=== PATIENT | male | born 1945 | race Native Hawaiian/Other Pacific Islander ===

== ENCOUNTER 2020-06-25 11:21 | Outpatient (CLI) | payer OTHER ==
[2020-06-25 12:15] LABS: PLATELET COUNT 158 K/uL (142-355)
[2020-06-25 12:51] LABS: POTASSIUM 4.7 mmol/L (3.6-5.2)
== END 2020-06-25 23:45 | disposition home or self-care (01) ==
LOC: LAB 11:21
PROVIDERS: ATTEND Nurse Practitioner Family
DX: Z00.00 Encounter for general adult medical examination without abnormal findings (principal); Z12.5 Encounter for screening for malignant neoplasm of prostate; Z79.899 Other long term (current) drug therapy; M12.89 Other specific arthropathies, not elsewhere classified, multiple sites; E55.9 Vitamin D deficiency, unspecified; R79.89 Other specified abnormal findings of blood chemistry; E56.9 Vitamin deficiency, unspecified; R53.83 Other fatigue; E78.1 Pure hyperglyceridemia; D50.8 Other iron deficiency anemias
CPT/HCPCS: 80053; 80061; 82306; 82378; 82607; 82728; 82746; 83036; 83540; 84144; 84153; 84402; 84403; 84443; 84550; 85027; 85652; 86038; 86140; 86430

== ENCOUNTER 2020-07-09 13:30 | Outpatient (CLI) | payer OTHER ==
[2020-07-09 13:58] LABS: POTASSIUM 4.4 mmol/L (3.6-5.2)
== END 2020-07-09 19:59 | disposition home or self-care (01) ==
LOC: LAB 13:30
PROVIDERS: ATTEND Internal Medicine Nephrology
DX: N18.31 Chronic kidney disease, stage 3a (principal)
CPT/HCPCS: 80048